=== PATIENT | male | born 1995 ===

== ENCOUNTER 2023-07-17 11:18 | Emergency (ER) | payer OTHER, SELFPAY ==
[2023-07-17 12:14] VITALS: BP 147/79; PULSE 104; RESP 17; TEMP 37.3; O2SAT 100; BMI 23.6
--- NOTE | 2023-07-17 13:21 | ED.WOUNDLAC ---
HPI - Wound/Laceration <Stew Anthony PA-C - Last Filed: 07/17/23 18:39> General Chief Complaint: Wound/Laceration Stated Complaint: cut tip of finger at work Time Seen by Provider: 07/17/23 13:18 Source: patient Mode of arrival: Ambulatory History of Present Illness HPI narrative: This is a 27-year-old male presents emergency department due to an injury to his right 2nd finger after working with a skill saw cutting wood. Tetanus is not up-to-date. He states that he ?cut off the pad of his finger ?. Denies any significant bony injury. No active bleeding. Not on blood thinners. Related Data Previous Rx's Medication Instructions Recorded cephalexin 500 mg capsule 500 mg PO QID #28 caps 07/17/23 Allergies Allergy/AdvReac Type Severity Reaction Status Date / Time No Known Drug Allergies Allergy Verified 07/17/23 12:18 Review of Systems <Stew Anthony PA-C - Last Filed: 07/17/23 18:39> Review of Systems Narrative: GENERAL: Denies chills, fatigue, malaise, fever, sweats. HEENT: Denies sinus pain, ear pain, sore throat, difficulty swallowing, dizziness. RESPIRATORY: Denies dyspnea, cough, wheezing, hemoptysis, sputum. CARDIOVASCULAR: Denies chest pain, palpitations, orthopnea, edema, GASTROINTESTINAL: Denies nausea, vomiting, abdominal pain, diarrhea, constipation, melena. : Denies dysuria, frequency, incontinence, hematuria, urinary retention. MUSCULOSKELETAL: denies weakness, joint pain, or bony pain SKIN: Right 2nd digit laceration NEUROLOGIC: Denies weakness, headache, numbness, change in speech, confusion, seizures, incoordination. PSYCHIATRIC: No concerning psychosocial issues. 12 point review of systems is negative except for those stated above Patient History <NELSON Mac Last Filed: 07/17/23 18:39> Social History Smoking Status: Never smoker Smoking Status: Never smoker alcohol intake frequency: other Substance Use Type: marijuana Exam <NELSON Mac Last Filed: 07/17/23 18:39> Narrative Exam Narrative: GENERAL: Well-developed patient, in mild distress. HEAD: Atraumatic. Normocephalic. EYES: Pupils equal round and reactive. Extraocular motions intact. No scleral icterus. No injection or drainage. ENT: Nose without bleeding, purulent drainage. Throat without erythema, tonsillar hypertrophy or exudate. Airway patent. NECK: Trachea midline. Non tender CARDIOVASCULAR: Regular rate and rhythm without murmurs, gallops, or rubs. RESPIRATORY: Clear to auscultation. Breath sounds equal bilaterally. No wheezes, rales, or rhonchi. GASTROINTESTINAL: Abdomen soft, non-tender, nondistended. EXTREMITIES: No edema or joint tenderness. BACK: Nontender without deformity or crepitance. No flank tenderness. NEURO: AOx3. SKIN: Avulsion injury to the pad of the distal right 2nd digit. Full range of motion of the joint and no bony tenderness. Initial Vital Signs Initial Vital Signs: Vital Signs Temperature 99.2 F 07/17/23 12:14 Pulse Rate 104 H 07/17/23 12:14 Respiratory Rate 17 07/17/23 12:14 Blood Pressure 147/79 H 07/17/23 12:14 Pulse Oximetry 100 07/17/23 12:14 Oxygen Delivery Method Room Air 07/17/23 12:14 <Kenny Kennedy DO - Last Filed: 07/18/23 08:59> Initial Vital Signs Initial Vital Signs: Vital Signs Temperature 99.2 F 07/17/23 12:14 Pulse Rate 104 H 07/17/23 12:14 Respiratory Rate 17 07/17/23 12:14 Blood Pressure 147/79 H 07/17/23 12:14 Pulse Oximetry 100 07/17/23 12:14 Oxygen Delivery Method Room Air 07/17/23 12:14 Course <Stew Anthony PA-C - Last Filed: 07/17/23 18:39> Orders Ordered: Discontinued Medications Diphtheria/Tetanus/Acell Pertussis (Tet,Diph,Pertuss(Acell),Vac/Pf 0.5 Ml Syringe) 0.5 ml IM .ONCE ONE Stop: 07/17/23 12:25 Last Admin: 07/17/23 13:26 Dose: 0.5 ml Documented By: ALBA Vital Signs Vital signs: Vital Signs - 8 hr 07/17/23 12:14 07/17/23 13:48 Temperature 99.2 F Pulse Rate 104 H 87 Respiratory Rate 17 16 Blood Pressure 147/79 H 140/74 Pulse Oximetry 100 100 Oxygen Delivery Method Room Air Room Air <Kenny Kennedy DO - Last Filed: 07/18/23 08:59> Orders Ordered: Discontinued Medications Diphtheria/Tetanus/Acell Pertussis (Tet,Diph,Pertuss(Acell),Vac/Pf 0.5 Ml Syringe) 0.5 ml IM .ONCE ONE Stop: 07/17/23 12:25 Last Admin: 07/17/23 13:26 Dose: 0.5 ml Documented By: ALBA Vital Signs Vital signs: Vital Signs - 8 hr 07/17/23 12:14 07/17/23 13:48 Temperature 99.2 F Pulse Rate 104 H 87 Respiratory Rate 17 16 Blood Pressure 147/79 H 140/74 Pulse Oximetry 100 100 Oxygen Delivery Method Room Air Room Air MDM - Wound/Laceration <Stew Anthony PA-C - Last Filed: 07/17/23 18:39> MDM Narrative Medical decision making narrative: MDM * differential diagnosis includes but not limited to laceration, tendon injury, fracture * Prior records reviewed: Patient has not been to this emergency department in the past * My lab interpretation: None obtained * My imgaing interpretation: None obtained * Clinical Decision Rules/Scores evaluated: None * Independent discussions with: None ED Course: This is a 27-year-old male presents to the emergency department due to an avulsion like injury to the pad of his right 2nd digit. He would full range of motion at the DIPJ joint in the low concern for tendon injury. There was also no surrounding bony tenderness and low concern for fracture. Tetanus was updated. Patient states that he was using a skill saw with a relatively dirty object so antibiotics will be prescribed in the event that it becomes infected. Shared Decision Making: Discussed plan with patient who is comfortable with the plan. Social Considerations: None Disposition: Discharged to home Discharge Plan Departure Patient Disposition: Home Clinical Impression: Avulsion of skin Activity Restrictions/Additional Instructions: Thank you for coming to the [facility] Emergency Department today. I am glad that we are was a clean up your wound as well as update your tetanus shot. Please take the antibiotics if the wound begins to become infected. [facility] to [facility] in [place]. I hope you feel better soon. Please follow up with your primary care provider within a week if your symptoms continue. If you do not have a primary care provider please contact the [facility] Resource line at [phone]. They will ask some questions about your medical history and help you get set up with a provider in the community. Prescriptions: New cephalexin 500 mg capsule 500 mg PO QID Qty: 28 0RF Referrals: Miscellaneous,Doctor, MD [Primary Care Provider] - Stand Alone Forms: Patient Portal/API ED Sign-out <Kenny Kennedy DO - Last Filed: 07/18/23 08:59> Cosign ED Attending Sorin Attestation: I was immediately available in the department for consultation. Documentation has been reviewed. I agree with assessment and plan.
[2023-07-17] MEDS: TET,DIPH,PERTUSS(ACELL),VAC/PF 0.5 ML SYRINGE IM (13:26)
[2023-07-17 13:48] VITALS: BP 140/74; PULSE 87; RESP 16; O2SAT 100
== END 2023-07-17 13:44 | disposition home or self-care (01) ==
PROVIDERS: Emergency Provider Physician Assistant Medical
DX: S61.200A Unspecified open wound of right index finger without damage to nail, initial encounter (principal); W27.0XXA Contact with workbench tool, initial encounter; Z23 Encounter for immunization
CPT/HCPCS: 90471; 99283; 90715